=== PATIENT | female | born 1960 | race Caucasian/White ===

== ENCOUNTER 2017-10-26 10:18 | Emergency (ER) | payer OTHER ==
[~2017-10-26 10:18] MED LIST: ANTIVERT 12.512.5 MG PO; ASPIRIN 81M81 MG/TA2 PO; KETOROLAC10 MG PO; KLONOPIN 0.5MG0.5 MG PO; LEXAPRO 10MG10 MG PO; LIPITOR 10MG10 MG PO; MOTRIN 800800 MG/TAB PO; PLAVIX 75MG TAB75 MG PO; STADOL NASA25 MG/BOT NAS
[2017-10-26 10:45] LABS: BASO % 0.6 % (0.0-2.0); EOS # 0.4 (0.0-0.7); EOS % 6.8 % (0-4.0); GRAN # 3.1 (1.4-6.5); GRAN % 58.7 % (42.2-75.2); HEMATOCRIT 39.5 % (37.0-47.0); HEMOGLOBIN 12.8 g/dl (12.5-16.0); LYMPH # 1.5 (1.2-3.4); LYMPH % 27.8 % (20.0-51.0); MEAN CELL VOLUME 87 fl (80.0-100.0); MEAN CORPUSCULAR HEMOGLOBIN 28 pg (27.0-31.0); MEAN CORPUSCULAR HGB CONC 32 g/dl (33.0-37.0); MONO # 0.3 (0.1-0.6); MONO % 5.9 % (1.7-9.3); PLATELET COUNT 234 K/mm3 (130-400); RED BLOOD COUNT 4.53 M/mm3 (4.10-5.30); REDCELL DISTRIBUTION WIDTH-CV 13.8 % (11.5-14.5)
[2017-10-26] MEDS ORDERED: NEURONTIN300 MG/CAP PO (10:46)
[2017-10-26] MEDS ORDERED: EFFEXOR XR37.5 MG/CA PO (10:48)
[2017-10-26 10:51] LABS: PROTHROMBIN TIME 10.8 SECONDS (9.7-12.8)
[2017-10-26 10:57] LABS: ALBUMIN 3.8 gm/dL (3.5-5.0); BILIRUBIN,TOTAL 0.4 mg/dL (0.0-1.0); CALCIUM 9.1 mg/dL (8.4-10.2); CREATININE, serum 0.78 mg/dL (0.52-1.25); POTASSIUM 4.1 mmol/L (3.4-5.0); TOTAL PROTEIN 7.1 gm/dL (6.4-8.2)
[2017-10-26 11:01] VITALS: TEMP 97.8
[2017-10-26 14:00] VITALS: BP 130/90; PULSE 74
== END 2017-10-26 14:07 | disposition home or self-care (01) ==
LOC: COL.ER 10:18
PROVIDERS: Emergency Medicine
DX: G43.909 Migraine, unspecified, not intractable, without status migrainosus (principal); Z86.73 Personal history of transient ischemic attack (TIA), and cerebral infarction without residual deficits; Z79.82 Long term (current) use of aspirin
CPT/HCPCS: J0780; J1200; J1885; J3010; J7030; Q9967